=== PATIENT | male | born 1985 | race Caucasian/White ===

== ENCOUNTER 2020-11-24 08:58 | Outpatient (CLI) | payer OTHER, SELFPAY | END 2020-11-24 08:59 | disposition home or self-care (01) | PROVIDERS: PCP Family Medicine; Visit Provider Family Medicine | DX: H90.3 Sensorineural hearing loss, bilateral (principal) | CPT/HCPCS: 92557; 92567 ==

== ENCOUNTER 2023-12-10 08:18 | Outpatient (CLI) | payer OTHER, SELFPAY | END 2023-12-10 08:19 | disposition home or self-care (01) | LOC: ANHBWCAUD 08:19 | PROVIDERS: PCP Family Medicine; Visit Provider Family Medicine | DX: H90.3 Sensorineural hearing loss, bilateral (principal) | CPT/HCPCS: 92557; 92567 ==